=== PATIENT | female | born 1940 | race Caucasian/White ===

== ENCOUNTER 2023-03-30 10:14 | Day surgery (SDC) | payer OTHER ==
--- NOTE | 2023-03-29 15:51 | RAD REPORT ---
EXAM DESCRIPTION: RAD - Chest Pa And Lat (2 Views) - 03/29/2023 3:42 pm CLINICAL HISTORY: PRE OP COMPARISON: CHEST PA AND LAT 2 VIEW dated 04/24/2012 FINDINGS: Lines: None. Lungs: No evidence of edema or pneumonia. Pleural: No significant pleural effusions or pneumothorax. Cardiac: The heart size is within normal limits. Mediastinum: Within normal limits. Bones: No acute fractures. Other: None IMPRESSION: No acute cardiopulmonary disease.
[2023-03-29 16:07] LABS: Hematocrit 39.7 % (36.0-45.0); Lymphocytes % 27.4 % (15.3-44.8); MCV 94.4 fL (80-100); MPV 9.6 fL (7.6-11.3); RBC Red Blood Cell Count 4.21 M/uL (3.86-4.86)
[2023-03-29 16:14] LABS: Potassium 3.8 mEq/L (3.5-5.1)
[2023-03-29 17:30] LABS: Protime INR 0.95
[2023-03-30] MEDS ORDERED: NA CHLORIDE 0.9% 500 ML ONE (10:27)
[2023-03-30 11:11] VITALS: TEMP 97.4
[2023-03-30] MEDS ORDERED: LIDOCAINE 1% 20 ML MDV ONE (11:16)
[2023-03-30] MEDS ORDERED: HEPA 1000U/500MLS 2,000 UNIT/1,000 ML BAG IV ONE (11:16)
[2023-03-30] MEDS ORDERED: FENTANYL CITR 100 MCG/2 ML ONE (11:48)
[2023-03-30] MEDS ORDERED: HEPARIN 5000 UNIT/ML 1 ML VIAL ONE (11:48)
[2023-03-30] MEDS ORDERED: VERAPAMIL HCL 10 MG/4 ML VIAL IV ONE (11:48)
[2023-03-30] MEDS ORDERED: MIDAZOLAM HCL 2 MG/2 ML INJ ONE (11:48)
[2023-03-30] MEDS ORDERED: HEPARIN 10,000 UNIT/10 ML VIAL IV ONE (11:49)
[2023-03-30] MEDS ORDERED: NITROGLYCERIN 100 MCG/ML SYR (for cath lab use only) IV ONE (11:49)
[2023-03-30] MEDS ORDERED: ATROPINE SULF 1 MG/10 ML SYR IV ONE (11:49)
[2023-03-30] MEDS ORDERED: CLOPIDOGREL 75 MG TABLET ONE (11:49)
[2023-03-30] MEDS ORDERED: TICAGRELOR 90 MG TABLET PO ONE (11:50)
[2023-03-30] MEDS ORDERED: ASPIRIN 325 MG TAB ONE (11:50)
[2023-03-30 15:43] VITALS: BP 110/45; O2SAT 95
--- NOTE | 2023-03-31 00:35 | OP ---
Date of Procedure: 03/30/2023 Surgeon: FRANCINE FRANCO Procedures Performed: 1.Selective coronary angiogram. 2.Left heart catheterization. Indication: Abnormal stress test. Access: Right femoral artery 6-Indonesian closed with 6-Indonesian Angio-Seal. Complications: None. Bleeding: Less than 20 mL. Anesthesia: Total sedation time was 30 minutes, used fentanyl and Versed. Description Of Procedure: After risks, benefits, and alternatives were explained, patient agreed to proceed and signed informed consent. Patient was brought into the cardiac catheterization laboratory , prepped and draped in sterile fashion. Then, I accessed right femoral artery using micropuncture k it, fluoroscopy, and ultrasound guidance and placed a 6-Ind[place]ian [place] sheath. Subsequently, I took a 6-Indonesian JL4 catheter over the J-wire into the aortic root, engaged the left main, took standard v iews, and then exchanged for 6-Indonesian JR4 catheter and engaged the RCA and took standard views and th en the catheter was pushed over the wire into the LV, measured LVEDP and pullback did not record any gradient. I removed the catheter and the sheath and 6-Indonesian Angio-Seal was used for closure. Good hemostasis. Findings: 1.Left main: Large and normal. 2.LAD: Moderate size, with some luminal irregularity throughout. Normal diagonal branches. 3.Left circumflex: It is a large artery and normal. 4.RCA: It is large artery with proximal 20% to 30% stenosis and it is a dominant circulation. 5.LVEDP is ranging between 10 and 16 mmHg. Conclusion: 1.Mild nonobstructive coronary artery disease. 2.Elevated LVEDP. Recommendation: Medical management. SR/MODL Voice ID: [id number] Report ID: [id number]
== END 2023-03-30 15:24 | disposition home or self-care (01) ==
LOC: CCL 10:14
PROVIDERS: ATTEND Internal Medicine
DX: I25.10 Atherosclerotic heart disease of native coronary artery without angina pectoris (principal); I65.23 Occlusion and stenosis of bilateral carotid arteries; E78.2 Mixed hyperlipidemia; Z79.82 Long term (current) use of aspirin; Z79.899 Other long term (current) drug therapy; Z82.49 Family history of ischemic heart disease and other diseases of the circulatory system
CPT/HCPCS: 85025; 80048; 36415; 85610; 85730; 71046; 93458; 76937; C1893; Q9966; C1760; G0269; J1644; J2001; J2250; J3010; J7040; J0461